=== PATIENT | female | born 1955 | race African-American/Black ===

== ENCOUNTER 2017-08-21 11:00 | Emergency (ER) | payer SELFPAY ==
[2017-08-21] MEDS: IBUPROFEN 600 MG TAB PO (14:59)
[2017-08-21] MEDS: IPRATROPIUM (NEB) 0.5 MG/2.5 ML AMP HHN (15:32)
[2017-08-21] MEDS: ALBUTEROL 0.083% (NEB) 2.5 MG/3 ML AMP HHN (15:32)
== END 2017-08-21 16:21 | disposition home or self-care (01) ==
LOC: FTE 11:00
DX: J20.9 Acute bronchitis, unspecified (principal); I10 Essential (primary) hypertension; E11.9 Type 2 diabetes mellitus without complications; J45.909 Unspecified asthma, uncomplicated; Z79.84 Long term (current) use of oral hypoglycemic drugs
CPT/HCPCS: 71045; 87400; 94644; 99284-25

== ENCOUNTER 2019-04-03 21:21 | Emergency (ER) | payer OTHER ==
[2019-04-03 22:22] LABS: ADD MAN DIFF? NO
[2019-04-03] MEDS: KETOROLAC 15 MG INJ IV (22:24)
[2019-04-03 22:25] LABS: WHITE BLOOD COUNT 9.6 10^3/ul (4.8-10.8)
[2019-04-03 22:25] LABS: BASOPHILS % 0.3 % (0.0-2.0); EOSINOPHILS # 0.1 10^3/ul (0.0-0.5); EOSINOPHILS % 1.4 % (0.0-7.0); HEMATOCRIT 40.9 % (37.0-47.0); HEMOGLOBIN 13.1 g/dl (12.0-16.0); LYMPHOCYTES # 2.4 10^3/ul (0.8-2.9); LYMPHOCYTES % 24.7 % (15.0-51.0); MEAN CORPUSCULAR VOLUME 84.2 fl (82.0-101.0); MEAN PLATELET VOLUME 10.9 fl (7.4-10.4); MONOCYTE # 0.8 10^3/ul (0.3-0.9); MONOCYTES % 7.9 % (0.0-11.0); NEUTROPHIL # 6.2 10^3/ul (1.6-7.5); NEUTROPHILS % 65.2 % (39.0-77.0); PLATELET COUNT 258 10^3/UL (140-415); RED BLOOD COUNT 4.86 10^6/ul (4.20-5.40); RED CELL DISTRIBUTION WIDTH 14.6 % (11.5-14.5)
[2019-04-03] MEDS: SOD CHLORIDE 0.9% 1,000 ML IV (22:25)
[2019-04-03] MEDS: CEFTRIAXONE 1 GM/50 ML (PMX) 50 ML IVPB (22:35)
[2019-04-03 22:40] LABS: ADD UMIC YES; UR ASCORBIC ACID NEGATIVE (NEGATIVE); UR BILIRUBIN (Dip) NEGATIVE (NEGATIVE); UR BLOOD (Dip) 1+ mg/dL (NEGATIVE); UR CLARITY SLIGHTLY CLOUDY (CLEAR); UR COLOR YELLOW (YELLOW); UR GLUCOSE (Dip) NEGATIVE (NEGATIVE); UR KETONES (Dip) NEGATIVE (NEGATIVE); UR LEUKOCYTE ESTERASE (Dip) NEGATIVE Leu/ul (NEGATIVE); UR NITRITE (Dip) NEGATIVE (NEGATIVE); UR RBC 0 /HPF (0-5); UR SPECIFIC GRAVITY (Dip) 1.021 (1.003-1.030); UR SQUAMOUS EPITHELIAL CELL FEW /HPF (FEW); UR TOTAL PROTEIN (Dip) NEGATIVE (NEGATIVE); UR UROBILINOGEN (Dip) NEGATIVE (NEGATIVE); UR WBC 3 /HPF (0-5)
[2019-04-03 22:52] LABS: ANION GAP 7 (5-13); BLOOD UREA NITROGEN 26 mg/dl (7-20); CARBON DIOXIDE 28 mmol/L (21-31); CHLORIDE 103 mmol/L (97-110); CREATININE 1.06 mg/dl (0.44-1.00); Estimated GFR > 60 mL/min (>60); GLUCOSE 115 mg/dl (70-220); POTASSIUM 4.5 mmol/L (3.5-5.1); SODIUM 138 mmol/L (135-144)
[2019-04-03] MEDS: ENALAPRIL 20 MG TAB PO (23:51)
[2019-04-04 00:01] LABS: TROPONIN-I < 0.012 ng/ml (0.000-0.120)
== END 2019-04-04 01:01 | disposition home or self-care (01) ==
LOC: E/R 04-04 01:01
DX: R30.0 Dysuria (principal); R07.9 Chest pain, unspecified; E11.9 Type 2 diabetes mellitus without complications; I10 Essential (primary) hypertension; J45.909 Unspecified asthma, uncomplicated; F17.210 Nicotine dependence, cigarettes, uncomplicated; Z85.841 Personal history of malignant neoplasm of brain; Z79.84 Long term (current) use of oral hypoglycemic drugs
CPT/HCPCS: 36415; 80048; 81001; 84484; 85025; 87040-91; 87086; 93005; 96365; 96375; 99284-25

== ENCOUNTER 2019-04-05 10:48 | Emergency (ER) | payer OTHER | END 2019-04-05 11:30 | disposition home or self-care (01) | LOC: E/R 10:48 | DX: Z00.00 Encounter for general adult medical examination without abnormal findings (principal); I10 Essential (primary) hypertension; E11.9 Type 2 diabetes mellitus without complications; J45.909 Unspecified asthma, uncomplicated; Z79.84 Long term (current) use of oral hypoglycemic drugs | CPT/HCPCS: 99283; Z7502 ==